=== PATIENT | female | born 1945 | race Caucasian/White ===

== ENCOUNTER 2017-08-13 06:53 | Day surgery (SDC) | payer OTHER ==
[~2017-08-13 06:53] MED LIST: PERCOCET 5/3251 TAB PO; RECTICARE30 GM TP
== END 2017-08-13 13:35 | disposition home or self-care (01) ==
LOC: AMB-ENDOS 06:53
DX: D12.4 Benign neoplasm of descending colon (principal); D12.3 Benign neoplasm of transverse colon; K57.30 Diverticulosis of large intestine without perforation or abscess without bleeding

== ENCOUNTER 2019-03-03 11:37 | Day surgery (SDC) | payer OTHER | END 2019-03-03 15:45 | disposition home or self-care (01) | LOC: AMB-ENDOS 11:37 | DX: D12.2 Benign neoplasm of ascending colon (principal); D12.3 Benign neoplasm of transverse colon ==

== ENCOUNTER 2021-05-15 06:34 | Day surgery (SDC) | payer OTHER ==
[~2021-05-15 06:34] MED LIST changes: +ATORVASTATIN CA40 MG PO; +COZAAR100 MG PO; +DAFLO PO; +GLIMEPIRIDE4 MG PO; +OMEPRAZ PO; +SYNTHROID88 MCG PO; +TENORMIN25 MG PO; +ULTRAM50 MG PO
[2021-05-15] MEDS ORDERED: PERCOCET 5-3251 EACH PO (11:58)
[2021-05-15] MEDS ORDERED: KETO10TA2 PO (11:58)
[2021-05-15] MEDS ORDERED: DERMOPLAST PAIN78 GM TOP (11:58)
[2021-05-15] MEDS ORDERED: NEURONTIN300 MG PO (11:59)
== END 2021-05-15 15:55 | disposition home or self-care (01) ==
LOC: CIR.AMB 06:34
PROVIDERS: ATTEND Surgery
DX: K64.3 Fourth degree hemorrhoids (principal)